=== PATIENT | female | born 1955 | race Caucasian/White ===

== ENCOUNTER 2024-05-01 22:13 | Emergency (ER) | payer BC, SELFPAY ==
[2024-05-01 22:14] VITALS: BP 110/76
[2024-05-01 23:11] VITALS: BMI 25.1
--- NOTE | 2024-05-01 23:13 | ED.GENMED ---
History of Present Illness
General
Chief Complaint: Bowel Problem
Source: patient
Exam Limitations: none
Time Seen by Provider: 05/01/24 23:08
History of Present Illness
History of Present Illness:
See MDM
Past History
Past History
ED Past Medical History: Asthma, HTN and Other (Chronic back pain, diverticulitis)
ED Past Surgical History: Orthopedic
Social History
Tobacco: Non-smoker
Alcohol: None
Drug: None
Personal: Single
Living: with family
Phy Exam
Physical Exam
Physical Exam:
See MDM
Course
Orders/Labs/Results
Orders:
Orders
05/01/24 23:12
Abdomen Xray - 1 View [CR Abdomen - 1 View] Urgent
Comment:
Reason For Exam: abd pain, constipated
05/01/24 23:49
Enema- Treatment ONCE
Type: Milk of Molasses
05/02/24 01:01
Magnesium Citrate [Citroma] 300 ml PO ONCE ONE
Vital Signs
Initial and Last Documented VS:
Initial Vital Signs
Temp Pulse Resp BP Pulse Ox
97.6 F 92 26 110/76 97
05/01/24 22:14 05/01/24 22:14 05/01/24 22:14 05/01/24 22:14 05/01/24 22:14
Last Documented Vital Signs
Temp Pulse Resp BP Pulse Ox
97.6 F 92 20 117/71 97
05/01/24 22:14 05/02/24 01:08 05/02/24 01:08 05/02/24 01:08 05/02/24 01:08
MDM/Problems Addressed
Differential Diagnosis Includes:
HPI and MDM Narrative:
68-year-old female presenting for evaluation of constipation abdominal pain. Patient is on chronic pain medicine. She states she takes daily MiraLAX to counteract the narcotics. She has been unable to move her bowels for the past 2 days. Patient
states she took multiple doses of MiraLAX today with no relief. She did take an enema today with relief. Patient does appear uncomfortable but she is not vomiting. She states she is still passing gas indicating that is less likely. Will obtain
abdominal x-ray
Physical exam
General: Uncomfortable
HEENT: protecting airway
Neck: appears supple
CV: No evidence of cyanosis
Resp: No accessory muscle use
Abd: Non-distended. Soft and minimally tender throughout. No rebound
Extremities: No deformities
Neuro: alert
Psych: Normal affect
Skin: Intact
Problems Addressed including Acute and Chronic Conditions affecting care:
1. Abdominal pain
Acuity: acute
Prognosis: stable
Details: Likely in setting of constipation. Will obtain x-ray
Updates
After milk of molasses enema, patient started to pass stool. Will give dose of magnesium citrate
After a few sips of magnesium citrate, patient developing small hives in the back of her neck. Will give dose of Benadryl and switch the magnesium citrate to one-time dose of lactulose
Differential Diagnosis (but not limited to): Constipation, diverticulitis, small bowel obstruction
Testing considered: CT but will start with x-ray first
Drug therapy (if applicable): OTC meds, please see d/c instruction regarding Rx drugs
Amount and/or Complexity of Data Reviewed
Clinical info obtained from: Patient
External data reviewed: N/A
Labs I independently reviewed (but not limited to): N/A
Radiology: X-ray independently reviewed: No air-fluid levels on abdominal x-ray. Stool seen in rectum
Pulse Ox: not hypoxic
EKG independently reviewed: N/A
Attendant Arcade: N/A
Critical Care: N/A
Risk of Complication:
Social Determinants of health: Good social support
Discussed with other providers: N/A
Escalation of Care includes Admit/Obs: After being observed in the Emergency Department, pt stable for discharge.
Occasional wrong word or 'sound a like' substitutions may have occurred due to the inherent limitations of voice recognition software. Read the chart carefully and recognize, using context, where substitutions have occurred.
*Critical Care Note
Total Time (30-74mins, 75-104mins- exclusive of procedures): Not Applicable
ED Attending Note
-
Portions of this chart may have been created with voice recognition software.� Occasional wrong word or��sound alike� substitutions may have occurred due to the inherent limitations of voice recognition software.
Discharge Plan
Departure
Patient Disposition: Home (Routine Discharge)
Date of Disposition: 05/02/24
Time of Disposition: 01:02
Patient with high blood pressure during this ER visit?: No
Discharge Problem:
Constipation
Instructions: Constipation, Adult (DC)
Prescriptions:
No Action
polyethylene glycol 3350 17 GRAMS powder in packet
34 grams PO DAILY Qty: 0 0RF
sumatriptan succinate 50 MG tablet
100 mg PO PRN PRN (Reason: migraine) Qty: 0 0RF
oxycodone-acetaminophen [Endocet] 1 EACH tablet
1 tab PO Q4 PRN (Reason: back pain) Qty: 0 0RF
dextroamphetamine-amphetamine [Adderall] 20 MG tablet
20 mg PO TID Qty: 0 0RF
lisinopril-hydrochlorothiazide 1 EACH tablet
1 ea PO DAILY Qty: 0 0RF
fluticasone propionate 1 SPRAY spray,suspension
1 spray intranasal DAILY Qty: 0 0RF
carisoprodol 350 MG tablet
350 mg PO BIDPRN PRN (Reason: BACK PAIN/MUSCLE SPASMS) Qty: 0 0RF
methylprednisolone [Medrol (Bill)] 4 mg tablets,dose pack
4 mg PO DIRECTED Qty: 21 0RF
Referrals:
Arabella Cao MD [Family Provider] -
Activity Restrictions/Additional Instructions:
Please return for any worsening symptoms.
You may return at any time if you have further concerns.
Please follow up with your doctor at the first available appointment, preferably this week.
Thank you for choosing [facility].
Interventions
Interventions:
*Risk Screen - Suicide Last Done: 05/01/24 22:24
*General Assessment Last Done: 05/01/24 23:34
*Neglect/Abuse Screening Last Done: 05/01/24 22:24
*ED- Fall Risk Assessment Last Done: 05/01/24 23:34
*ED COVID-19 Vaccine History Last Done: 05/01/24 23:34
LJ-Bkvhaz-Iglsxqtmlo Assessment Last Done: 05/01/24 23:26
Discharge Date and Time
Print Language: [id number]
[2024-05-01 23:35] VITALS: BP 104/71
[2024-05-02 01:08] VITALS: BP 117/71
[2024-05-02] MEDS: CITROMA 300 ML PO (01:14)
[2024-05-02] MEDS: BENADRYL 25 MG PO (01:46)
[2024-05-02] MEDS: DUPHALAC/CHRONULAC 20 GRAMS PO (01:46)
[2024-05-02 02:54] VITALS: BP 114/72
[2024-05-02] MEDS: CARAFATE SUSPENSION 1 GM PO (03:07)
[2024-05-02] MEDS: BENTYL 10 MG PO (03:08)
[2024-05-02 03:14] VITALS: BP 128/83
[2024-05-02 05:27] VITALS: BP 111/60
[2024-05-02] MEDS: BENTYL 20 MG PO (05:38)
== END 2024-05-02 07:12 | disposition home or self-care (01) ==
LOC: EMR 22:13
PROVIDERS: EMERGENCY PHYSICIAN Student in an Organized Health Care Education/Training Program; FAMILY PHYSICIAN Family Medicine
DX: K59.00 Constipation, unspecified (principal)
CPT/HCPCS: 99283; 74018